=== PATIENT | female | born 1975 | race Caucasian/White ===

== ENCOUNTER 2019-05-30 09:01 | Day surgery (SDC) | payer OTHER ==
[2019-05-30] MEDS ORDERED: CEFAZOLIN 2 GM/50 ML (PMX) 50 ML IVPB (10:30)
[2019-05-30 10:31] LABS: ADD MAN DIFF? NO
[2019-05-30] MEDS: SOD CHLORIDE 0.9% 1,000 ML IV (10:31)
[2019-05-30 10:33] LABS: WHITE BLOOD COUNT 5.2 10^3/ul (4.8-10.8)
[2019-05-30 10:33] LABS: BASOPHIL # 0.1 10^3/ul (0.0-0.1); EOSINOPHILS # 0.1 10^3/ul (0.0-0.5); EOSINOPHILS % 2.3 % (0.0-7.0); HEMATOCRIT 41.3 % (37.0-47.0); HEMOGLOBIN 13.7 g/dl (12.0-16.0); LYMPHOCYTES # 2.3 10^3/ul (0.8-2.9); LYMPHOCYTES % 44.3 % (15.0-51.0); MEAN CORPUSCULAR HEMOGLOBIN 30.2 pg (29.0-33.0); MEAN CORPUSCULAR HGB CONC 33.2 g/dl (32.0-37.0); MEAN CORPUSCULAR VOLUME 91.2 fl (82.0-101.0); MEAN PLATELET VOLUME 11.7 fl (7.4-10.4); MONOCYTE # 0.4 10^3/ul (0.3-0.9); MONOCYTES % 7.1 % (0.0-11.0); NEUTROPHIL # 2.4 10^3/ul (1.6-7.5); NEUTROPHILS % 45.1 % (39.0-77.0); PLATELET COUNT 229 10^3/UL (140-415); RED BLOOD COUNT 4.53 10^6/ul (4.20-5.40)
[2019-05-30 10:52] LABS: INR 0.82; PROTIME 11.4 Sec (11.9-14.9); PT RATIO 0.9
[2019-05-30 10:53] LABS: PARTIAL THROMBOPLASTIN TIME 26.7 Sec (23.0-35.0)
[2019-05-30 10:55] LABS: ALANINE AMINOTRANSFERASE 27 IU/L (13-69); ALBUMIN 4.5 g/dl (3.3-4.9); ALBUMIN/GLOBULIN RATIO 1.28; ALKALINE PHOSPHATASE 68 IU/L (42-121); ANION GAP 8 (5-13); ASPARTATE AMINO TRANSFERASE 38 IU/L (15-46); BILIRUBIN,INDIRECT 0.4 mg/dl (0-1.1); BILIRUBIN,TOTAL 0.4 mg/dl (0.2-1.3); BLOOD UREA NITROGEN 15 mg/dl (7-20); CARBON DIOXIDE 30 mmol/L (21-31); CHLORIDE 103 mmol/L (97-110); CREATININE 0.78 mg/dl (0.44-1.00); Estimated GFR > 60 mL/min (>60); GLUCOSE 95 mg/dl (70-220); POTASSIUM 4.1 mmol/L (3.5-5.1); SODIUM 141 mmol/L (135-144)
[2019-05-30] MEDS ORDERED: FENTAnyl 50 MCG/ML VIAL ×2 (11:43→12:41)
[2019-05-30] MEDS ORDERED: LIDOCAINE 2% (SDV) 5 ML INJ (11:43)
[2019-05-30] MEDS ORDERED: CEFAZOLIN 1 GM INJ (11:43)
[2019-05-30] MEDS ORDERED: PROPOFOL 20 ML (11:43)
[2019-05-30] MEDS ORDERED: FENTAnyl 50 MCG/ML VIAL IV ×3 (12:00)
[2019-05-30] MEDS ORDERED: MEPERIDINE 25 MG INJ IV (12:00)
[2019-05-30] MEDS ORDERED: LABETALOL HCL 20MG INJ IV (12:00)
[2019-05-30] MEDS ORDERED: OXYCODONE/ACETAMINOPHEN (5/325) TAB PO ×2 (12:00)
[2019-05-30] MEDS ORDERED: ONDANSETRON 4 MG INJ IV (12:00)
[2019-05-30] MEDS ORDERED: DEXAMETHASONE 4 MG/ML 5 ML INJ (12:18)
[2019-05-30] MEDS ORDERED: ONDANSETRON 4 MG INJ (12:18)
[2019-05-30] MEDS ORDERED: METOCLOPRAMIDE 10 MG INJ (12:18)
[2019-05-30] MEDS: BUPIVACAINE 0.5% (SDV) 30 ML INJ (12:43)
[2019-05-30] MEDS: HYDROCODONE/APAP (5/325) TAB PO (14:20)
== END 2019-05-30 14:47 | disposition home or self-care (01) ==
LOC: SDS 09:01
DX: C82.91 Follicular lymphoma, unspecified, lymph nodes of head, face, and neck (principal); F12.90 Cannabis use, unspecified, uncomplicated
CPT/HCPCS: 14041; 80053; 85025; 85610; 85730; 88304; 88313